=== PATIENT | female | born 1950 | race Caucasian/White ===

== ENCOUNTER 2019-06-19 23:16 | Emergency (ER) | payer OTHER, SELFPAY ==
[2019-06-19 23:25] VITALS: BP 128/59; PULSE 66; RESP 18; TEMP 36.4; O2SAT 98
[2019-06-19 23:34] VITALS: O2SAT 96
--- NOTE | 2019-06-19 23:38 | ED.URI ---
HPI - URI/Sore Throat General Chief Complaint: Upper Respiratory Infection <Shira Graham PA-C - Last Filed: 06/20/19 00:21> Stated Complaint: see if i have the flu <GÓMEZ Vega Last Filed: 06/20/19 00:21> Time Seen by Provider: 06/19/19 23:22 <GÓMEZ Vega Last Filed: 06/20/19 00:21> Source: patient <GÓMEZ Vega Last Filed: 06/20/19 00:21> Mode of arrival: ambulatory <GÓMEZ Vega Last Filed: 06/20/19 00:21> Limitations: no limitations <GÓMEZ Vega Last Filed: 06/20/19 00:21> History of Present Illness HPI Narrative: This is a 69 year old female that presents to the ER for cold symptoms x 4 days. Reports fatigue, myalgia, fever, cough and congestion. Reports she tried to go to work tonight and was told to come get tested for the Flu. Denies chest pain or shortness of breath. <GÓMEZ Vega Last Filed: 06/20/19 00:21> Related Data Home Medications: Home Medications Medication Instructions Recorded Confirmed nifedipine 60 mg tablet,extended 60 mg PO DAILY 05/16/19 release omeprazole 40 mg capsule,delayed 40 mg PO DAILY 05/16/19 release propranolol 10 mg tablet 20 mg PO TID tablet 05/16/19 tizanidine 2 mg tablet 2 mg PO TID PRN 05/16/19 <GÓMEZ Vega Last Filed: 06/20/19 00:21> Allergies/Adverse Reactions: Allergies Allergy/AdvReac Type Severity Reaction Status Date / Time No Known Allergies Allergy Verified 06/19/19 23:28 <GÓMEZ Vega Last Filed: 06/20/19 00:21> Review of Systems Review of Systems: Narrative: CONSTITUTIONAL: Report fever, chills ENT: Reports rhinorrhea, congestion. Denies sore throat, or otalgia. CARDIOVASCULAR: Denies chest pain RESPIRATORY: Reports cough. Denies dyspnea. MUSCULOSKELETAL: Reports myalgia. <Shira Graham PA-C - Last Filed: 06/20/19 00:21> All systems reviewed & are unremarkable except as noted in HPI and below <Shira Graham PA-C - Last Filed: 06/20/19 00:21> PMFSH Past Medical History Medical History: Medical History (Updated 06/20/19 @ 00:20 by Shira Graham PA-C) Essential (primary) hypertension History of gastroesophageal reflux (GERD) History of hyperlipidemia, mixed <Shira Graham PA-C - Last Filed: 06/20/19 00:21> Social History Social History: Social History Smoking status: Never smoker Alcohol intake: current <Shira Graham PA-C - Last Filed: 06/20/19 00:21> Exam Narrative: Exam Narrative: GENERAL: Well-appearing, well-nourished, and in no acute distress. HEAD: Normocephalic, atraumatic. EYES: EOMI. ENT: Nares clear, no rhinorrhea or epistaxis. Mucous membranes moist. Oropharynx without tonsillar hypertrophy exudate or other lesions. Bilateral TMs pearly hopkins non-bulging NECK: Supple. No adenopathy or masses. CHEST: Clear to auscultation. No respiratory distress. No wheezes rales or rhonchi HEART: Regular rate and rhythm. No murmur heard. Normal peripheral pulses. EXTREMITIES: Normal range of motion. No edema. SKIN: Warm, dry, no rash. NEURO: No focal deficits. Alert and oriented x3. PSYCH: Normal mood and affect <Shira Graham PA-C - Last Filed: 06/20/19 00:21> Course Vital Signs Vital signs: Vital Signs Temperature 97.6 F 06/19/19 23:25 Pulse Rate 66 06/19/19 23:25 Respiratory Rate 18 06/19/19 23:25 Blood Pressure 128/59 L 06/19/19 23:25 Pulse Oximetry 98 06/19/19 23:25 Temperature 98.5 F 06/20/19 00:36 Pulse Rate 57 L 06/20/19 00:36 Respiratory Rate 16 06/20/19 00:36 Blood Pressure 114/60 06/20/19 00:36 Pulse Oximetry 96 06/20/19 00:36 <Shira Graham PA-C - Last Filed: 06/20/19 00:21> Vital Signs Temperature 97.6 F 06/19/19 23:25 Pulse Rate 66 06/19/19 23:25 Respiratory Rate 18 06/19/19 23:25 Blood Pressure 128/59 L 06/19/19 23:25 Pu
[2019-06-20 00:36] VITALS: BP 114/60; PULSE 57; RESP 16; TEMP 36.9; O2SAT 96
== END 2019-06-20 00:38 | disposition home or self-care (01) ==
PROVIDERS: Emergency Provider General Practice; PCP Family Medicine
DX: J06.9 Acute upper respiratory infection, unspecified (principal); I10 Essential (primary) hypertension; K21.9 Gastro-esophageal reflux disease without esophagitis; E78.2 Mixed hyperlipidemia
CPT/HCPCS: 87804; 99283

== ENCOUNTER 2019-09-03 07:39 | Outpatient (CLI) | payer OTHER, SELFPAY ==
--- NOTE | ~2019-09-03 | US_ITS ---
EXAMINATION: US carotid duplex BI DATE: 09/03/2019 08:25 INDICATION: Left carotid bruit TECHNIQUE: Grayscale, color Doppler, and pulsed Doppler images of the cervical carotid arteries were obtained. The degree of vessel stenosis is placed in one of the following categories: normal, <50%, 5 0-69%, >=70% but less than near-occlusion, near-occlusion, or total occlusion. Note that percent sten osis relative to normal distal artery lumen diameter is indirectly measured from velocity measurement s as described by Hood, et al. Radiology 2003; 229:[id number]. COMPARISON: None. FINDINGS: RIGHT: The right common carotid artery (CCA) peak systolic velocity (PSV) is 118 cm/s. The right internal ca rotid artery (ICA) PSV is 135 cm/s. The right ICA end-diastolic velocity (EDV) is 33 cm/s. The right ICA/CCA PSV ratio is 1.1. Grayscale and color Doppler images yield an estimate of 50-69% diameter red uction from plaque in the ICA. The external carotid artery (ECA) PSV is 73 cm/s. There is antegrade f low in the right vertebral artery. LEFT: The left CCA PSV is 72 cm/s. The left ICA PSV is 93 cm/s. The left ICA EDV is 30 cm/s. The left ICA/C CA PSV ratio is 1.3. Grayscale and color Doppler images yield an estimate of <50% diameter reduction from plaque in the ICA. The ECA PSV is 64 cm/s. There is antegrade flow in the left vertebral artery. IMPRESSION: 1. 50-69% stenosis in the right internal carotid artery. 2. <50% stenosis in the left internal carotid artery. Reviewed, dictated and finalized at location A.
== END 2019-09-03 07:40 | disposition home or self-care (01) ==
PROVIDERS: PCP Family Medicine; Visit Provider Family Medicine
DX: R09.89 Other specified symptoms and signs involving the circulatory and respiratory systems (principal); I65.23 Occlusion and stenosis of bilateral carotid arteries
CPT/HCPCS: 93880

== ENCOUNTER 2019-09-19 07:38 | Outpatient (CLI) | payer OTHER, SELFPAY ==
[2019-09-19 08:14] LABS: Basophils Absolute Auto 0.1 K/mm3 (0.0-0.1); Basophils Percent Auto 0.9 % (0.2-1.2); Eosinophils Absolute Auto 0.2 K/mm3 (0-0.3); Eosinophils Percent Auto 1.7 % (0-4.4); Hematocrit 35.9 % (37.0-47.0); Hemoglobin 11.8 g/dL (12.0-15.0); Immature Granulocyte Absolute 0.05 K/mm3 (0.00-0.031); Immature Granulocyte Percent A 0.4 % (0-0.5); Lymphocytes Absolute Auto 3.44 K/mm3 (0.9-3.2); Lymphocytes Percent Auto 24.5 % (18.3-44.2); Mean Corpuscular HGB Conc 32.9 g/dl (32-36); Mean Corpuscular Hemoglobin 30.3 pg (26-34); Mean Corpuscular Volume 92.1 fl (80-100); Monocytes Absolute Auto 1.4 K/mm3 (0.1-0.6); Monocytes Percent Auto 9.8 % (2.6-8.5); Neutrophils Absolute Auto 8.8 K/mm3 (1.3-6.7); Neutrophils Percent Auto 62.7 % (45.5-73.1); Platelet Count Result 331 k/mm3 (150-375); Red Cell Distribution Width 12.9 % (11.5-14.5); White Blood Count 14.1 K/mm3 (4.5-10.0)
[2019-09-19 08:28] LABS: Alanine Aminotransferase 17 U/L (4-35); Albumin Level 4.6 g/dL (3.5-5.1); Alkaline Phosphatase 80 U/L (38-126); Aspartate Amino Transferase 25 U/L (14-36); Bilirubin,Total 0.4 mg/dL (0.2-1.3); Blood Urea Nitrogen 10 mg/dL (7-17); Calcium 9.6 mg/dL (8.4-10.2); Carbon Dioxide 34 mmol/L (22-30); Chloride 97 mmol/L (98-107); Cholesterol 203 mg/dL (0-200); Estimated Glomerular Filt Rate > 60; Glucose 83 mg/dL (65-105); HDL Direct 51 mg/dL; Potassium 4.4 mmol/L (3.4-5.0); Sodium 135 mmol/L (137-145); Triglycerides 302 mg/dL (<150)
[2019-09-19 08:44] LABS: LDL Cholesterol Direct 99 mg/dL
[2019-09-19 09:02] LABS: Iron 70 ug/dL (37-170)
[2019-09-19 09:12] LABS: Percent Iron Saturation 23 % (20-50)
== END 2019-09-19 07:39 | disposition home or self-care (01) ==
LOC: ANHLAB 07:39
PROVIDERS: PCP Family Medicine; Visit Provider Family Medicine
DX: E61.1 Iron deficiency (principal); E78.2 Mixed hyperlipidemia; D64.9 Anemia, unspecified
CPT/HCPCS: 36415; 80048; 80061; 80076; 83540; 83550; 85025

== ENCOUNTER 2019-09-26 07:31 | Outpatient (CLI) | payer OTHER, SELFPAY ==
[2019-09-26 07:55] LABS: Hematocrit 34.3 % (37.0-47.0); Hemoglobin 11.4 g/dL (12.0-15.0); Mean Corpuscular HGB Conc 33.2 g/dl (32-36); Mean Corpuscular Hemoglobin 30.5 pg (26-34); Mean Corpuscular Volume 91.7 fl (80-100); Mean Platelet Volume 9.9 fl (7.4-10.4); Platelet Count Result 329 k/mm3 (150-375); Red Blood Count 3.74 M/mm3 (4.2-5.4); Red Cell Distribution Width 12.9 % (11.5-14.5); White Blood Count 12.1 K/mm3 (4.5-10.0)
[2019-09-26 08:20] LABS: Blood Urea Nitrogen 11 mg/dL (7-17); Calcium 9.6 mg/dL (8.4-10.2); Carbon Dioxide 32 mmol/L (22-30); Chloride 96 mmol/L (98-107); Cholesterol 208 mg/dL (0-200); Estimated Glomerular Filt Rate > 60; Glucose 94 mg/dL (65-105); HDL Direct 52 mg/dL; Sodium 133 mmol/L (137-145); Triglycerides 192 mg/dL (<150)
[2019-09-26 08:31] LABS: LDL Cholesterol Direct 118 mg/dL
== END 2019-09-26 07:32 | disposition home or self-care (01) ==
PROVIDERS: PCP Family Medicine; Visit Provider Nurse Practitioner Family
DX: E87.1 Hypo-osmolality and hyponatremia (principal); D72.829 Elevated white blood cell count, unspecified; E78.5 Hyperlipidemia, unspecified
CPT/HCPCS: 36415; 80048; 80061; 85027

== ENCOUNTER 2019-11-29 11:40 | Outpatient (CLI) | payer OTHER, SELFPAY ==
[2019-11-29 12:17] LABS: Hematocrit 38.1 % (37.0-47.0); Hemoglobin 12.4 g/dL (12.0-15.0); Mean Corpuscular HGB Conc 32.5 g/dl (32-36); Mean Corpuscular Hemoglobin 30.2 pg (26-34); Mean Corpuscular Volume 92.7 fl (80-100); Mean Platelet Volume 10.1 fl (7.4-10.4); Platelet Count Result 406 k/mm3 (150-375); Red Blood Count 4.11 M/mm3 (4.2-5.4); Red Cell Distribution Width 13.3 % (11.5-14.5); White Blood Count 12.6 K/mm3 (4.5-10.0)
[2019-11-29 12:38] LABS: Anion Gap 8 mmol/L (8-16); Blood Urea Nitrogen 15 mg/dL (7-17); Calcium 9.5 mg/dL (8.4-10.2); Carbon Dioxide 30 mmol/L (22-30); Chloride 97 mmol/L (98-107); Estimated Glomerular Filt Rate > 60; Glucose 112 mg/dL (65-105); Sodium 135 mmol/L (137-145)
== END 2019-11-29 11:41 | disposition home or self-care (01) ==
LOC: ANHLAB 11:41
PROVIDERS: PCP Family Medicine; Visit Provider Nurse Practitioner Family
DX: E87.1 Hypo-osmolality and hyponatremia (principal); D64.9 Anemia, unspecified; D72.829 Elevated white blood cell count, unspecified
CPT/HCPCS: 36415; 80048; 85027

== ENCOUNTER 2021-03-02 07:37 | Outpatient (CLI) | payer OTHER, SELFPAY ==
[2021-03-02 08:15] LABS: Hematocrit 36.4 % (37.0-47.0); Hemoglobin 12.3 g/dL (12.0-15.0); Mean Corpuscular HGB Conc 33.8 g/dl (32-36); Mean Corpuscular Hemoglobin 30.8 pg (26-34); Mean Corpuscular Volume 91.2 fl (80-100); Platelet Count Result 332 k/mm3 (150-375); Red Blood Count 3.99 M/mm3 (4.2-5.4); Red Cell Distribution Width 13.2 % (11.5-14.5); White Blood Count 10.8 K/mm3 (4.5-10.0)
[2021-03-02 08:28] LABS: Alanine Aminotransferase 15 U/L (4-35); Albumin Level 4.6 g/dL (3.5-5.1); Alkaline Phosphatase 79 U/L (38-126); Anion Gap 6 mmol/L (8-16); Aspartate Amino Transferase 24 U/L (14-36); Bilirubin,Total 0.6 mg/dL (0.2-1.3); Blood Urea Nitrogen 10 mg/dL (7-17); Calcium 9.8 mg/dL (8.4-10.2); Carbon Dioxide 31 mmol/L (22-30); Chloride 100 mmol/L (98-107); Cholesterol 175 mg/dL (0-200); Estimated Glomerular Filt Rate > 60; Glucose 99 mg/dL (65-110); HDL Direct 58 mg/dL; Potassium 4.2 mmol/L (3.4-5.0); Sodium 137 mmol/L (137-145); Triglycerides 105 mg/dL (<150)
[2021-03-02 08:39] LABS: LDL Cholesterol Direct 86 mg/dL
[2021-03-02 08:40] LABS: Iron 79 ug/dL (37-170)
[2021-03-02 08:50] LABS: Percent Iron Saturation 27 % (20-50)
== END 2021-03-02 07:38 | disposition home or self-care (01) ==
LOC: ANHLAB 07:39
PROVIDERS: PCP Family Medicine; Visit Provider Family Medicine
DX: I10 Essential (primary) hypertension (principal); E61.1 Iron deficiency; E78.2 Mixed hyperlipidemia; Z13.220 Encounter for screening for lipoid disorders; D64.9 Anemia, unspecified
CPT/HCPCS: 36415; 80048; 80061; 80076; 83540; 83550; 84443; 85027

== ENCOUNTER 2022-11-20 07:33 | Outpatient (CLI) | payer OTHER, SELFPAY ==
[2022-11-20 08:02] LABS: Hematocrit 36.1 % (37.0-47.0); Hemoglobin 11.8 g/dL (12.0-15.0); Mean Corpuscular HGB Conc 32.7 g/dl (32-36); Mean Corpuscular Hemoglobin 30.3 pg (26-34); Mean Corpuscular Volume 92.8 fl (80-100); Mean Platelet Volume 10.2 fl (7.4-10.4); Platelet Count Result 351 k/mm3 (150-375); Red Blood Count 3.89 M/mm3 (4.2-5.4); Red Cell Distribution Width 13.8 % (11.5-14.5); White Blood Count 11.7 K/mm3 (4.5-10.0)
[2022-11-20 08:14] LABS: Alanine Aminotransferase 23 U/L (6-35); Albumin Level 4.5 g/dL (3.5-5.1); Alkaline Phosphatase 99 U/L (38-126); Anion Gap 3 mmol/L (8-16); Aspartate Amino Transferase 29 U/L (14-36); Bilirubin,Total 0.6 mg/dL (0.2-1.3); Blood Urea Nitrogen 12 mg/dL (7-17); Calcium 9.5 mg/dL (8.4-10.2); Carbon Dioxide 30 mmol/L (22-30); Chloride 96 mmol/L (98-107); Cholesterol 166 mg/dL (0-200); Estimated Glomerular Filt Rate > 60; Glucose 91 mg/dL (65-110); HDL Direct 56 mg/dL; Potassium 3.8 mmol/L (3.4-5.0); Sodium 129 mmol/L (137-145); Triglycerides 133 mg/dL (<150)
[2022-11-20 08:25] LABS: LDL Cholesterol Direct 68 mg/dL
[2022-11-20 09:19] LABS: Iron 79 ug/dL (37-170)
[2022-11-20 09:28] LABS: Percent Iron Saturation 27 % (20-50)
== END 2022-11-20 07:34 | disposition home or self-care (01) ==
PROVIDERS: PCP Family Medicine; Visit Provider Family Medicine
DX: E78.2 Mixed hyperlipidemia (principal); Z13.220 Encounter for screening for lipoid disorders; D50.9 Iron deficiency anemia, unspecified; I10 Essential (primary) hypertension
CPT/HCPCS: 36415; 80048; 80061; 80076; 83540; 83550; 84443; 85027

== ENCOUNTER 2023-09-03 07:40 | Outpatient (CLI) | payer OTHER, SELFPAY ==
[2023-09-03 08:08] LABS: Basophils Absolute Auto 0.1 K/mm3 (0.0-0.1); Basophils Percent Auto 0.6 % (0.2-1.2); Eosinophils Absolute Auto 0.3 K/mm3 (0-0.3); Eosinophils Percent Auto 2.9 % (0-4.4); Hematocrit 34.7 % (37.0-47.0); Hemoglobin 11.3 g/dL (12.0-15.0); Immature Granulocyte Absolute 0.04 K/mm3 (0.00-0.031); Immature Granulocyte Percent A 0.3 % (0-0.5); Lymphocytes Percent Auto 24.5 % (18.3-44.2); Mean Corpuscular HGB Conc 32.6 g/dl (32-36); Mean Corpuscular Hemoglobin 30.7 pg (26-34); Mean Corpuscular Volume 94.3 fl (80-100); Mean Platelet Volume 10.5 fl (7.4-10.4); Monocytes Percent Auto 8.7 % (2.6-8.5); Neutrophils Absolute Auto 7.5 K/mm3 (1.3-6.7); Platelet Count Result 299 k/mm3 (150-375); Red Blood Count 3.68 M/mm3 (4.2-5.4); Red Cell Distribution Width 13.4 % (11.5-14.5); White Blood Count 11.8 K/mm3 (4.5-10.0)
[2023-09-03 08:30] LABS: Anion Gap 5 mmol/L (4-12); Blood Urea Nitrogen 12 mg/dL (7-17); Calcium 9.1 mg/dL (8.4-10.2); Carbon Dioxide 29 mmol/L (22-30); Chloride 94 mmol/L (98-107); Estimated Glomerular Filt Rate > 60; Glucose 93 mg/dL (65-110); Sodium 128 mmol/L (137-145)
== END 2023-09-03 07:41 | disposition home or self-care (01) ==
PROVIDERS: PCP Family Medicine; Visit Provider Family Medicine
DX: D50.9 Iron deficiency anemia, unspecified (principal); E87.1 Hypo-osmolality and hyponatremia
CPT/HCPCS: 36415; 80048; 85025

== ENCOUNTER 2023-09-14 13:23 | Outpatient (CLI) | payer OTHER, SELFPAY ==
--- NOTE | ~2023-09-14 | CT_ITS ---
CT Scan of the Chest without Contrast: Clinical Indication: Lung cancer screening, chronic cough, former smoker Technique: Contiguous sections were acquired throughout the chest without intravenous contrast. Dose reduction technique was used on this scan by utilizing automated exposure control and iterative recon struction technique. The dose-length product (DLP) was 52.14 mGy-cm. Findings: There is no evidence of any significant mediastinal, hilar or axillary lymphadenopathy. There are ext ensive atherosclerotic calcifications of the aorta and coronary arteries. There is no evidence of pleural or pericardial effusion. There is moderate emphysema with mild biapical scarring. No other pulmonary nodule evident. Images through the upper abdomen reveal no abnormalities. There are mild compression fracture deformi ties of T11 and L1. Impression: Lung RADS 2: Benign appearance. 12 month follow-up screening CT advised. Reviewed, dictated and finalized at location . Impression: Lung RADS 2: Benign appearance. 12 month follow-up screening CT advised.
== END 2023-09-14 13:24 | disposition home or self-care (01) ==
LOC: ANHIMG 13:25
PROVIDERS: PCP Family Medicine; Visit Provider Family Medicine
DX: Z12.2 Encounter for screening for malignant neoplasm of respiratory organs (principal); R05.3 Chronic cough; Z87.891 Personal history of nicotine dependence
CPT/HCPCS: 71271